=== PATIENT | male | born 1940 | race Caucasian/White ===

== ENCOUNTER 2022-01-14 08:52 | Day surgery (SDC) | payer MEDICARE, BC ==
[2022-01-14] MEDS ORDERED: Midazolam 1 MG/ML 2 ML SDV IV ONE (08:53)
[2022-01-14] MEDS ORDERED: Dexamethasone 4 MG/ML SDV IV ONE (08:53)
[2022-01-14] MEDS ORDERED: Sodium Chloride 0.9% 10 ML Syringe IV ONE (08:53)
[2022-01-14] MEDS ORDERED: Moxifloxacin 0.5% Ophth Soln 3 ML Bottle EYELF ONE (09:30)
[2022-01-14] MEDS ORDERED: Acetaminophen/Codeine 300-30 MG Tab PO PRN (09:30)
[2022-01-14] MEDS ORDERED: Sodium Chloride 0.9% 10 ML Syringe FLUSH PRN (09:30)
[2022-01-14] MEDS ORDERED: Cataract Ophth Solution EYELF ONE (09:30)
[2022-01-14] MEDS ORDERED: Tropicamide 1% Ophth Soln 15 ML Bottle EYELF ONE (09:30)
[2022-01-14] MEDS ORDERED: Proparacaine 0.5% Ophth Soln 15 ML Bottle EYELF ONE ×2 (09:30→10:10)
[2022-01-14] MEDS ORDERED: Timolol Maleate 0.5% Ophth Soln 5 ML Bottle EYELF ONE (09:30)
[2022-01-14] MEDS ORDERED: Povidone-Iodine 5% Sterile Ophth Soln 30 ML Bottle EYELF ONE ×2 (09:30→10:11)
[2022-01-14] MEDS ORDERED: Phenylephrine 10% Ophth Soln 5 ML Bot EYELF PRN (09:30)
[2022-01-14] MEDS ORDERED: Acetaminophen 325 MG Tab PO PRN (09:30)
[2022-01-14] MEDS ORDERED: Ondansetron 4 MG/2 ML SDV IVPUSH PRN (09:30)
[2022-01-14] MEDS ORDERED: Lidocaine 1% 30 ML SDV ONE (10:15)
[2022-01-14] MEDS ORDERED: Chondroitin Sulfate/Hyaluronate Sodium Ophth Inj 0.75 ML Syringe EYELF ONE (10:16)
[2022-01-14] MEDS ORDERED: Balanced Salt Solution Ophth Irrig 500 ML Bottle IOCULAR ONE (10:16)
[2022-01-14] MEDS ORDERED: Vancomycin 500 MG SDV EYELF ONE (10:21)
[2022-01-14] MEDS ORDERED: Apraclonidine 0.5% Ophth Soln 5 ML Bot EYELF ONE (10:23)
[2022-01-14] MEDS ORDERED: Diclofenac Sodium 0.1% Ophth Soln 5 ML Bottle EYELF ONE (10:24)
[2022-01-14] MEDS ORDERED: Dexamethasone/Neomycin/Polymyxin B Ophth Oint 3.5 GM Tube EYELF ONE (10:25)
[2022-01-14 15:35] VITALS: BP 161/67; PULSE 67
== END 2022-01-14 11:25 | disposition home or self-care (01) ==
LOC: DL.SDS 08:52
PROVIDERS: ATTEND Ophthalmology
DX: E11.36 Type 2 diabetes mellitus with diabetic cataract (principal); E11.65 Type 2 diabetes mellitus with hyperglycemia; H25.812 Combined forms of age-related cataract, left eye; I25.10 Atherosclerotic heart disease of native coronary artery without angina pectoris; I10 Essential (primary) hypertension; E78.5 Hyperlipidemia, unspecified; I25.2 Old myocardial infarction; E11.51 Type 2 diabetes mellitus with diabetic peripheral angiopathy without gangrene; E66.9 Obesity, unspecified; K21.9 Gastro-esophageal reflux disease without esophagitis; E11.22 Type 2 diabetes mellitus with diabetic chronic kidney disease; I12.9 Hypertensive chronic kidney disease with stage 1 through stage 4 chronic kidney disease, or unspecified chronic kidney disease; N18.30 Chronic kidney disease, stage 3 unspecified; M10.9 Gout, unspecified; Z79.899 Other long term (current) drug therapy; Z79.02 Long term (current) use of antithrombotics/antiplatelets; N40.0 Benign prostatic hyperplasia without lower urinary tract symptoms
CPT/HCPCS: 00142; 66984; A9270; J1100; J2250; J3370; J3490; V2632